=== PATIENT | female | born 1980 | race African-American/Black ===

== ENCOUNTER 2025-06-17 07:45 | Outpatient (CLI) | payer MEDICARE | END 2025-06-17 07:46 | disposition home or self-care (01) | LOC: CSHMAMMO 07:45 | PROVIDERS: ATTEND Nurse Practitioner Family | DX: N63.23 Unspecified lump in the left breast, lower outer quadrant (principal); N63.42 Unspecified lump in left breast, subareolar | CPT/HCPCS: 76642; 77066; G0279 ==